=== PATIENT | female | born 1980 | race Caucasian/White ===

== ENCOUNTER → 2023-07-28 | Outpatient (CLI) | payer OTHER ==
[~2023-07-28] MED LIST: BENZ100A PO; BIRTH CONTROL PILL; CYCL10 PO; HYDACE5 PO; NAPR550 PO; OXYACE5T PO; PROM25 PO
[2023-08-10 11:46] LABS: HPV GENOTYPE 16 BY TMA Detected; HPV GENOTYPE 18/45 BY TMA Not Detected; HPV HIGH RISK BY TMA Detected; HPV SOURCE Cervical; HPVG SOURCE Cervical
== END ==
LOC: LAB 12:07 → LAB SHORT 12:07
PROVIDERS: Obstetrics & Gynecology
DX: Z01.419 Encounter for gynecological examination (general) (routine) without abnormal findings (principal)
CPT/HCPCS: 87624; 87625; G0123

== ENCOUNTER 2023-07-29 19:10 | Emergency (ER) | payer OTHER ==
[~2023-07-29] VITALS: Ht 175.3 cm; Wt 96.6 kg
[~2023-07-29 19:10] MED LIST changes: -BENZ100A PO
[2023-07-29 19:23] VITALS: BP 165/85
[2023-07-29 20:16] LABS: Influenza A, PCR NEGATIVE (NEGATIVE); Influenza B, PCR NEGATIVE (NEGATIVE); Resp Syncytial Virus, PCR NEGATIVE (NEGATIVE); SARS-Cov-2 (COVID-19) PCR, MMC NEGATIVE (NEGATIVE)
[2023-07-29] MEDS ORDERED: BENZ100A PO (20:43)
[2023-07-29] MEDS ORDERED: Benzonatate 100 MG Cap PO ONE (20:45)
== END 2023-07-29 20:53 | disposition home or self-care (01) ==
LOC: ER 19:10
PROVIDERS: Emergency Medicine
DX: J06.9 Acute upper respiratory infection, unspecified (principal); J40 Bronchitis, not specified as acute or chronic
CPT/HCPCS: 0241U; 71046; 99283-25; A9270

== ENCOUNTER → 2023-09-08 | Outpatient (CLI) | payer OTHER ==
[~2023-09-08] MED LIST changes: +BENZ100A PO
== END | disposition home or self-care (01) ==
LOC: LAB SHORT 07:54
DX: N92.4 Excessive bleeding in the premenopausal period (principal)
CPT/HCPCS: 88305

== ENCOUNTER → 2023-09-08 | Outpatient (CLI) | payer OTHER ==
[2023-09-12 09:56] LABS: 3-OH-COTININE, URN, QUANT 83 ng/mL; ANABASINE, URN, QUANT <5 ng/mL; COTININE, URN, QUANT 18 ng/mL; NICOTINE, URN, QUANT <15 ng/mL
== END | disposition home or self-care (01) ==
LOC: LAB SHORT 15:26
PROVIDERS: Obstetrics & Gynecology
DX: F17.210 Nicotine dependence, cigarettes, uncomplicated (principal)
CPT/HCPCS: G0480

== ENCOUNTER → 2023-10-04 | Outpatient (CLI) | payer OTHER ==
[~2023-10-04] MED LIST changes: +BANOPHEN25 MG PO; +IBUP600 PO
== END ==
LOC: LAB SHORT 10:31 → LAB 10:31
DX: R87.810 Cervical high risk human papillomavirus (HPV) DNA test positive (principal)
CPT/HCPCS: 88305

== ENCOUNTER 2023-10-20 05:45 | Day surgery (SDC) | payer OTHER ==
[2023-10-20] VITALS (22 sets, daily range): BP systolic 130–165; BP diastolic 70–112
[~2023-10-20] VITALS: Ht 175.3 cm; Wt 93.7 kg
[~2023-10-20 05:45] MED LIST changes: -IBUP600 PO; +IBUP800 PO
[2023-10-20] MEDS ORDERED: Lactated Ringer's 1,000 ML IV SCH ×2 (06:20→09:30)
[2023-10-20] MEDS ORDERED: CeFAZolin Sodium 2,000 MG in NS 100 ML IV SCH (06:20)
--- NOTE | 2023-10-20 06:23 | NUR ---
Ambulatory in Day Surgery Patient confirms NPO status and agrees with scheduled surgery. Pre-Op teaching done. Pt verbalizes understanding. History, Chart, Medications and Allergies reviewed before start of procedure.
[2023-10-20] MEDS ORDERED: C COMPLEX1000 M1 PO (06:43)
[2023-10-20] MEDS ORDERED: ALBU90OI (06:45)
[2023-10-20] MEDS ORDERED: MYFERON 150150 MG (06:45)
[2023-10-20] MEDS ORDERED: Bupivacaine 0.5% HCl 5 MG/ML 30MLVIAL ONE (07:05)
[2023-10-20] MEDS ORDERED: FentaNYL Citrate 50 MCG/ML 2 ML Injection IV ONE (07:20)
[2023-10-20] MEDS ORDERED: Midazolam HCl 1MG / ML 2ML Vial IV ONE (07:20)
[2023-10-20] MEDS ORDERED: propofoL 20 ML IV ONE (07:22)
[2023-10-20] MEDS ORDERED: FentaNYL Citrate 50 MCG/ML 2 ML Injection ONE ×3 (07:22→10:10)
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
[2023-10-20] MEDS ORDERED: Albuterol HFA200 ACT/6.7 GM INH INH PRN (07:35)
[2023-10-20] MEDS ORDERED: Phenylephrine HCl 100 MCG/ML-NS 10MLSYR (1MG/10ML) ONE (08:03)
[2023-10-20] MEDS ORDERED: Rocuronium Bromide 10 MG/ML 5ML Injection IV ONE (08:03)
[2023-10-20] MEDS ORDERED: Ketorolac Tromethamine 30mg Vial ONE (09:13)
[2023-10-20] MEDS ORDERED: Phenylephrine HCl 10mg/ml 1 ml Vial ONE (09:13)
[2023-10-20] MEDS ORDERED: Sugammadex Sodium 200 MG/2ML SDV (100 MG/ML) ONE (09:14)
[2023-10-20] MEDS ORDERED: Metoclopramide HCl 5MG / ML 2ML Vial IV PRN (09:30)
[2023-10-20] MEDS ORDERED: Naloxone HCl 0.4MG / ML 1ML Vial IV PRN (09:30)
[2023-10-20] MEDS ORDERED: Ibuprofen 400 MG Tab PO PRN (09:35)
[2023-10-20] MEDS ORDERED: Ondansetron HCl 2 MG / ML 2ML Vial IV PRN (09:35)
[2023-10-20] MEDS ORDERED: HYDROmorphone HCl/Pf 1MG SYR IV PRN (09:35)
[2023-10-20] MEDS ORDERED: Simethicone 80 MG Chew PO PRN (09:35)
[2023-10-20] MEDS ORDERED: Metoclopramide HCl 10 MG Tab PO PRN (09:35)
[2023-10-20] MEDS ORDERED: DiphenhydrAMINE HCL 25 MG Cap PO PRN (09:35)
[2023-10-20] MEDS ORDERED: Ondansetron 4 MG TAB PO PRN (09:40)
[2023-10-20] MEDS ORDERED: OxyCODONE HCL 5 MG TAB PO PRN (09:40)
[2023-10-20] MEDS ORDERED: LORazepam 2 MG/ML 1ML Injection ONE (10:00)
[2023-10-20] MEDS ORDERED: Ketorolac Tromethamine 30mg Vial IV PRN (10:10)
--- NOTE | 2023-10-20 11:28 | NUR ---
PT ARRIVED TO UNIT ON [facility]. WAS ABLE TO TRANSFER TO BED HERSELF. AMBULATED TO BATHROOM AND BACK TO BED WITH ONE PERSON STAND BY ASSIST. IN PLEASENT MOOD. A&OX4. EDUCATED PT ABOUT CALL LIGHT. SNACKS AND DRINKS AT BEDSIDE. CALL LIGHT WITHIN REACH.
[2023-10-20] MEDS ORDERED: Acetaminophen 500 MG Tab PO SCH (12:00)
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
--- NOTE | 2023-10-20 22:05 | NUR ---
CHARTING PREVIOUS RN MISTAKENLLY ADDED SUICIDE INTERVENTIONS ON PT'S CHART. METAL BED ASSEMBLER CONTACTED PREVIOUS RN AND CONFIRMED IT WAS AN ACIIDENT. WAS MEANING TO PUT FOCUSED POST OP ASSESSMENT. THIS RN CLARIFIED W/ METAL BED ASSEMBLER. SUICIDE INTERVENTIONS REMOVED FROM PT'S CHART.
[2023-10-21 00:06] VITALS: BP 119/70
[2023-10-21 04:23] VITALS: BP 132/77
--- NOTE | 2023-10-21 05:59 | NUR ---
SHIFT SUMMARY POD 1 LAP HYSTER PT RESTLESS DURING THE NIGHT. PAIN TOLERABLE WITH PAIN MEDICATION. TOLERTING PO INTAKE, VOIDING. PT HAVING MINIMAL BLEEDING ON KAMERON PAD. X4 LAP SITE TO ABD ARE C/D/I. PT IND IN THE ROOM. VSS NO OTHER CONCERNS AT THIS TIME, CALL LIGHT WITHIN REACH
[2023-10-21 07:59] VITALS: BP 128/79
[2023-10-21] MEDS ORDERED: Polyethylene Glycol 3350 17 gm PO ONE (08:10)
[2023-10-21 09:20] VITALS: BP 132/92
[2023-10-21] MEDS ORDERED: ACET500 PO (10:07)
[2023-10-21] MEDS ORDERED: OXYC5 PO (10:08)
[2023-10-21] MEDS ORDERED: SIME80CH PO (10:09)
--- NOTE | 2023-10-21 13:47 | NUR ---
Pt. is awake and dressed ready to he be discharged. Pt. verbalize that her daughter's have broken down in [place] on the way to pick her up. Pt. does not display and anxiety but maintaitn a positive and hopeful attitude. Prayed with Pt. Pt. verbalized gratitude for the spiritual care visit.
--- NOTE | 2023-10-21 14:48 | NUR ---
DISCHARGE SUMMARY PT A&Ox4, CALLS AND COMMUNICATES NEEDS APPROPRIATELY. BP STABLE, NO TELE, DENIES CP/PRESSURE. SpO2> 92% RA, DENIES SOB. IND IN ROOM. C/O OF MOD-SEVERE ABDOMINAL PAIN, MANAGED WITH HEAT PAD, REPOSITIONING, REST, AND PER EMAR. PROVIDED PT WITH ABD BINDER. LAP INCISION x4 C/D/I. DISCHARGE INSTRUCTIONS PROVIDED WITH FAMILY MEMBER AT BEDSIDE. ALL PT BELONGINGS TAKEN OUT BY VISITOR. PT TAKEN OUT VIA WHEELCHAIR BY CLINICAL STAFF MEMBER AT APPROXIMATELY 1430.
== END 2023-10-21 14:30 | disposition home or self-care (01) ==
LOC: ORSCMMR 05:45 → ORD 07:30 → SURS 10:29 → ORSCMMR 10-21 14:30
PROVIDERS: Obstetrics & Gynecology
PROC: 0UT9FZZ Resection of Uterus, Via Natural or Artificial Opening With Percutaneous Endoscopic Assistance (ICD-10-PCS; principal; 2023-10-20 07:30)
PROC: 0U5F4ZZ Destruction of Cul-de-sac, Percutaneous Endoscopic Approach (ICD-10-PCS; principal; 2023-10-20 07:30)
PROC: 0UT7FZZ Resection of Bilateral Fallopian Tubes, Via Natural or Artificial Opening With Percutaneous Endoscopic Assistance (ICD-10-PCS; principal; 2023-10-20 07:30)
DX: N92.4 Excessive bleeding in the premenopausal period (principal); D25.9 Leiomyoma of uterus, unspecified; N80.03 Adenomyosis of the uterus; N84.0 Polyp of corpus uteri; D50.0 Iron deficiency anemia secondary to blood loss (chronic); F17.210 Nicotine dependence, cigarettes, uncomplicated; G35 Multiple sclerosis; F41.9 Anxiety disorder, unspecified; F32.A Depression, unspecified; Z79.899 Other long term (current) drug therapy
CPT/HCPCS: 86900; 86901; 88307; 94762; A9270; J0690; J1170; J1885; J2060; J2250; J2371; J2405; J2704; J2765; J3010; J7120

== ENCOUNTER 2024-04-03 15:22 | Emergency (ER) | payer OTHER ==
[~2024-04-03] VITALS: Ht 175.3 cm; Wt 96.6 kg
[~2024-04-03 15:22] MED LIST changes: +ACET500 PO; +ALBU90OI; +C COMPLEX1000 M1 PO; +MYFERON 150150 MG; +OXYC5 PO; +SIME80CH PO
[2024-04-03 15:59] VITALS: BP 165/111
[2024-04-03] MEDS ORDERED: NS 1,000 ML IV SCH (16:35)
[2024-04-03] MEDS ORDERED: Dexamethasone Sod Phos 10 MG/ML 1ML VIAL IV ONE (16:35)
[2024-04-03] MEDS ORDERED: Prochlorperazine Edisylate 10 mg Vial IV ONE (16:35)
[2024-04-03] MEDS ORDERED: DiphenhydrAMINE HCl 50 MG/ML 1ML Vial IV ONE (16:35)
[2024-04-03] MEDS ORDERED: Ketorolac Tromethamine 15mg Vial IV ONE (16:35)
[2024-04-03] MEDS ORDERED: QUETIAPINE FUMA5012 PO (18:11)
== END 2024-04-03 19:08 | disposition home or self-care (01) ==
LOC: ER 15:22
DX: R51.9 Headache, unspecified (principal); Z88.8 Allergy status to other drugs, medicaments and biological substances; Z79.891 Long term (current) use of opiate analgesic; Z87.891 Personal history of nicotine dependence
CPT/HCPCS: 96361; 96374; 96375; 99283-25; J0780; J1100; J1200; J1885; J7030

== ENCOUNTER 2024-08-27 11:27 | Emergency (ER) | payer OTHER ==
[~2024-08-27] VITALS: Ht 175.3 cm; Wt 99.8 kg
[~2024-08-27 11:27] MED LIST changes: +QUETIAPINE FUMA5012 PO
[2024-08-27 11:34] VITALS: BP 176/95
== END 2024-08-27 14:40 | disposition home or self-care (01) ==
LOC: ER 11:27
DX: M25.562 Pain in left knee (principal); M23.52 Chronic instability of knee, left knee; Z90.711 Acquired absence of uterus with remaining cervical stump; Z90.89 Acquired absence of other organs; Z79.2 Long term (current) use of antibiotics; Z79.1 Long term (current) use of non-steroidal anti-inflammatories (NSAID); Z79.899 Other long term (current) drug therapy
CPT/HCPCS: 73562-LT

== ENCOUNTER 2024-09-14 12:48 | Emergency (ER) | payer OTHER ==
[~2024-09-14] VITALS: Ht 175.3 cm; Wt 99.8 kg
[2024-09-14 16:10] VITALS: BP 139/82
== END 2024-09-14 16:10 | disposition home or self-care (01) ==
LOC: ER 12:48
DX: S06.0X0A Concussion without loss of consciousness, initial encounter (principal); Z88.8 Allergy status to other drugs, medicaments and biological substances; Z79.2 Long term (current) use of antibiotics; Z79.899 Other long term (current) drug therapy; Z59.89 Other problems related to housing and economic circumstances; W22.8XXA Striking against or struck by other objects, initial encounter
CPT/HCPCS: 12001; 99283-25; A9270

== ENCOUNTER 2024-10-17 11:19 | Emergency (ER) | payer OTHER ==
[~2024-10-17] VITALS: Ht 175.3 cm; Wt 99.8 kg
[2024-10-17] MEDS ORDERED: Ketorolac Tromethamine 30mg Vial IV ONE (11:30)
[2024-10-17 11:50] LABS: BASOPHILS ABSOLUTE AUTO 0.06 K/mm3 (0.00-0.23); BASOPHILS PERCENT AUTO 1 % (0-2); EOSINOPHILS ABSOLUTE AUTO 0.18 K/mm3 (0.00-0.68); EOSINOPHILS PERCENT AUTO 2 % (0-6); Hematocrit 40.2 % (33.0-51.0); Hemoglobin 13.2 g/dL (11.5-16.0); IMMATURE GRAN ABSOLUTE AUTO 0.08 K/mm3 (0.00-0.10); IMMATURE GRAN PERCENT AUTO 1 % (0-1); LYMPHOCYTES ABSOLUTE AUTO 1.99 K/mm3 (0.84-5.20); LYMPHOCYTES PERCENT AUTO 25 % (21-46); MONOCYTES ABSOLUTE AUTO 0.53 K/mm3 (0.16-1.47); MONOCYTES PERCENT AUTO 7 % (4-13); Mean Corpuscular HGB Conc 32.8 g/dL (31.5-36.5); Mean Corpuscular Volume 91 fL (80-100); NEUTROPHILS ABSOLUTE AUTO 5.16 K/mm3 (1.96-9.15); NEUTROPHILS PERCENT AUTO 64 % (41-73); NRBC ABSOLUTE 0.00 K/mm3 (0.00-0.02); NRBC Auto 0.0 /100 WBC (0.0-0.2); Platelet Count 263 K/mm3 (150-400); RDW Coefficient Variation 12.4 % (11.7-14.2); RDW Standard Deviation 41.1 fL (35.1-46.3)
[2024-10-17] MEDS ORDERED: Morphine Sulfate 4 MG/1 ML Injection IV ONE (13:30)
[2024-10-17] MEDS ORDERED: Ondansetron HCl 2 MG / ML 2ML Vial IV ONE (13:30)
[2024-10-17 13:58] LABS: Chloride, Blood 110.0 mmol/L (98-108); Potassium, Blood 3.9 mmol/L (3.5-5.5); Sodium, Blood 139.0 mmol/L (136-145)
[2024-10-17 13:59] LABS: Alanine Aminotransfer (ALT/SGP 40.0 U/L (12-78); Albumin, Blood 3.8 g/dL (3.4-5.0); Albumin/Globulin Ratio 1.2 (0.8-1.8); Anion Gap 13.0 mmol/L (3-11); Aspartate Aminotrans (AST/SGOT 27.0 U/L (12-37); Bilirubin, Total 0.3 mg/dL (0.1-1.0); Blood Urea Nitrogen 7.0 mg/dL (8-24); CO2, Blood 20.0 mmol/L (21-32); Calcium, Blood 8.5 mg/dL (8.5-10.1); Creatinine, Blood 0.57 mg/dL (0.40-1.00); Globulin, Blood 3.3 g/dL (2.2-4.0); Glucose, Blood 108.0 mg/dL (70-99); Total Protein, Blood 7.1 g/dL (6.4-8.2)
[2024-10-17] MEDS ORDERED: HYDROmorphone HCl/Pf 1MG SYR IV ONE (15:10)
[2024-10-17] MEDS ORDERED: METPRE4DP PO (16:08)
[2024-10-17] MEDS ORDERED: OXAYDO5 M1 PO (16:08)
[2024-10-17 16:21] VITALS: BP 100/83
== END 2024-10-17 16:23 | disposition home or self-care (01) ==
LOC: ER 11:19
PROVIDERS: Emergency Medicine
DX: R07.89 Other chest pain (principal); F17.210 Nicotine dependence, cigarettes, uncomplicated; Z79.899 Other long term (current) drug therapy; Z88.5 Allergy status to narcotic agent
CPT/HCPCS: 71046; 80053; 84484; 85025; 85379; 93005; 93010; 96374; 96375; 99285-25; J1171; J1885; J2270; J2405